=== PATIENT | male | born 1995 ===

== ENCOUNTER 2019-03-23 22:26 | Emergency (ER) | payer MEDICAID ==
[2019-03-23] MEDS ORDERED: ZIPRASIDONE MESYLATE 20 MG VIAL IM ONE (22:36)
[2019-03-23] MEDS ORDERED: LORazepam 2 MG/ML VIAL IM ONE (22:36)
[2019-03-23] MEDS ORDERED: diphenhydrAMINE 50 MG/ML VIAL IM ONE (22:36)
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
[2019-03-23 22:52] LABS: Basophils % (Auto) 0.4 % (0.0-1.8); Eosinophils # (Auto) 0.2 K/mm3 (0.0-0.4); Eosinophils % (Auto) 2.9 % (0.0-4.3); Hematocrit 42.9 % (35.5-45.6); Hemoglobin 14.7 gm/dl (11.8-15.2); Lymphocytes # (Auto) 2.3 K/mm3 (1.2-5.4); Lymphocytes % (Auto) 31.4 % (13.4-35.0); Mean Corpuscular HGB Conc 34 % (32-34); Mean Corpuscular Volume 93 fl (84-94); Monocytes # (Auto) 0.8 K/mm3 (0.0-0.8); Monocytes % (Auto) 10.8 % (0.0-7.3); Platelet Count 244 K/mm3 (140-440); Red Cell Distribution Width 13.2 % (13.2-15.2)
[2019-03-23 23:24] LABS: Alanine Aminotransferase 11 units/L (7-56); Albumin 4.3 g/dL (3.9-5); BUN/Creatinine Ratio 17; Blood Urea Nitrogen 10 mg/dL (9-20); Calcium 9.2 mg/dL (8.4-10.2); Hemolysis Index 11
[2019-03-24 08:06] LABS: Amphetamine Screen,Urine PRESUMPTIVE NEGATIVE; Benzodiazepines Screen,Urine PRESUMPTIVE NEGATIVE; Cannabinoid Screen,Urine PRESUMPTIVE NEGATIVE; Cocaine Screen,Urine PRESUMPTIVE NEGATIVE; Methadone Screen,Urine PRESUMPTIVE NEGATIVE; Opiate Screen,Urine PRESUMPTIVE NEGATIVE
[2019-03-24 08:52] LABS: Bilirubin,Urine NEG (Negative); Blood,Urine NEG (Negative); Color,Urine Yellow (Yellow); Mucus,Urine FEW /HPF; Protein,Urine <15 mg/dL mg/dL (Negative); Sperm,Urine 1+ /HPF (NP); Urobilinogen,Urine < 2.0 mg/dL (<2.0)
[2019-03-24] MEDS ORDERED: ZIPRASIDONE MESYLATE 20 MG VIAL IM ONE ×2 (16:46→16:48)
[2019-03-25] MEDS ORDERED: NICOTINE 14 MG/24 HR PATCH TD ONE (01:10)
[2019-03-25] MEDS ORDERED: ZIPRASIDONE MESYLATE 20 MG VIAL IM PRN (01:10)
[2019-03-25] MEDS ORDERED: ZIPRASIDONE MESYLATE 20 MG VIAL IM ONE ×2 (01:13→09:41)
[2019-03-25 07:31] VITALS: BP 127/87
[2019-03-25] MEDS ORDERED: WATER FOR INJ Sterile (PF) 10 ML ONE (09:42)
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
== END 2019-03-25 16:00 | disposition home or self-care (01) ==
LOC: EEVIPCON 22:26 → ED 22:26
DX: F91.1 Conduct disorder, childhood-onset type (principal); R45.1 Restlessness and agitation
CPT/HCPCS: 36415; 80053; 80307; 81001; 84443; 85025; 96372; 99284; J3486; 80320; G0480

== ENCOUNTER 2020-01-27 23:52 | Emergency (ER) | payer MEDICAID ==
[2020-01-28 01:26] VITALS: BP 143/84
== END 2020-01-28 05:45 | disposition left against medical advice (07) ==
LOC: ED 23:52
DX: R41.82 Altered mental status, unspecified (principal); Z53.21 Procedure and treatment not carried out due to patient leaving prior to being seen by health care provider

== ENCOUNTER 2020-01-29 02:30 | Emergency (ER) | payer MEDICAID ==
[2020-01-29 04:06] LABS: Basophils % (Auto) 0.2 % (0.0-1.8); Eosinophils % (Auto) 0.3 % (0.0-4.3); Hematocrit 42.4 % (35.5-45.6); Hemoglobin 14.6 gm/dl (11.8-15.2); Lymphocytes # (Auto) 2.3 K/mm3 (1.2-5.4); Lymphocytes % (Auto) 20.5 % (13.4-35.0); Mean Corpuscular HGB Conc 34 % (32-34); Mean Corpuscular Volume 91 fl (84-94); Monocytes # (Auto) 1.4 K/mm3 (0.0-0.8); Platelet Count 272 K/mm3 (140-440); Red Blood Count 4.69 M/mm3 (3.65-5.03); Red Cell Distribution Width 12.7 % (13.2-15.2)
[2020-01-29 04:26] LABS: Blood Urea Nitrogen 15 mg/dL (9-20); Calcium 9.5 mg/dL (8.4-10.2); Hemolysis Index 6
[2020-01-29 04:43] LABS: BUN/Creatinine Ratio 21
[2020-01-29 06:37] VITALS: BP 146/104
== END 2020-01-29 04:37 ==
LOC: ED 02:30
DX: R41.82 Altered mental status, unspecified (principal); Z53.21 Procedure and treatment not carried out due to patient leaving prior to being seen by health care provider
CPT/HCPCS: 36415; 80048; 80320; 85025; G0480

== ENCOUNTER 2020-02-25 03:22 | Emergency (ER) | payer MEDICAID ==
[2020-02-25 04:58] LABS: Basophils % (Auto) 0.3 % (0.0-1.8); Eosinophils # (Auto) 0.1 K/mm3 (0.0-0.4); Eosinophils % (Auto) 1.8 % (0.0-4.3); Hematocrit 42.8 % (35.5-45.6); Hemoglobin 14.5 gm/dl (11.8-15.2); Lymphocytes # (Auto) 2.6 K/mm3 (1.2-5.4); Lymphocytes % (Auto) 35.3 % (13.4-35.0); Mean Corpuscular HGB Conc 34 % (32-34); Mean Corpuscular Volume 91 fl (84-94); Monocytes # (Auto) 0.9 K/mm3 (0.0-0.8); Monocytes % (Auto) 12.9 % (0.0-7.3); Platelet Count 283 K/mm3 (140-440)
[2020-02-25 05:12] LABS: Blood Urea Nitrogen 12 mg/dL (9-20); Calcium 9.3 mg/dL (8.4-10.2); Hemolysis Index 8
[2020-02-25 05:17] LABS: BUN/Creatinine Ratio 17
== END 2020-02-25 05:00 | disposition left against medical advice (07) ==
LOC: ED 03:22
DX: R45.851 Suicidal ideations (principal); Z53.21 Procedure and treatment not carried out due to patient leaving prior to being seen by health care provider
CPT/HCPCS: 36415; 80048; 80320; 85025; G0480